=== PATIENT | male | born 1950 | race Caucasian/White ===

== ENCOUNTER 2016-10-23 09:02 | Outpatient (CLI) | payer OTHER | END 2016-10-23 09:03 | disposition home or self-care (01) | DX: N39.0 Urinary tract infection, site not specified (principal); R73.09 Other abnormal glucose ==

== ENCOUNTER 2019-03-20 21:10 | Outpatient (CLI) | payer BC | END 2019-03-20 21:11 | disposition critical access hospital (66) | LOC: EMS 21:10 | PROVIDERS: ATTEND Surgery | DX: R04.0 Epistaxis (principal); R42 Dizziness and giddiness | CPT/HCPCS: A0425; A0429 ==

== ENCOUNTER 2019-03-20 21:27 | Emergency (ER) | payer BC, OTHER ==
--- NOTE | 2019-03-20 21:36 | ED Physician Documentation ---
PD HPI HEENT - Stated complaint Stated Complaint: NOSE BLEED - History obtained from History obtained from: Patient - History of Present Illness Timing - onset: Enter time (20:00), Today Timing - details: Abrupt onset Pain level now: 0 Improves: Nothing Similar symptoms before: Has not had sx before Recently seen: Not recently seen - Additional information Additional information: sudden onset left nare epistaxis while at rest at home 8 PM tonight. Review of Systems Nose: reports: Epistaxis. denies: Congestion, Sinus pressure / pain PD PAST MEDICAL HISTORY - Past Medical History Cardiovascular: Hypertension, Angina Respiratory: Sleep apnea, CPAP use Endocrine/Autoimmune: Type 2 diabetes GI: Colon polyps Psych: Depression - Past Surgical History General: Colonoscopy Cardiovascular: Coronary stent - Present Medications Home Medications: Ambulatory Orders Medication Instructions Recorded Confirmed Hydrochlorothiazide [Microzide] 12.5 mg PO 01/17/13 01/17/13 Lisinopril [Zestril] 5 mg PO DAILY 01/17/13 01/17/13 Metformin HCl [Fortamet] 500 mg PO 01/17/13 01/17/13 Nitroglycerin [Nitrostat] 0.4 mg SL 01/17/13 01/17/13 Simvastatin [Zocor] 10 mg PO QPM 01/17/13 01/17/13 Aspirin 81 mg PO 01/18/13 01/18/13 [place]-3 Fatty Acids [Fish Oil] 500 mg PO 01/18/13 01/18/13 - Allergies Allergies/Adverse Reactions: Allergies Allergy/AdvReac Type Severity Reaction Status Date / Time No Known Drug Allergies Allergy Verified 01/17/13 14:45 PD ED PE NORMAL - Vitals Vital signs reviewed: Yes - General General: Alert and oriented X 3, No acute distress, Well developed/nourished - HEENT HEENT: Moist mucous membranes, Other (active epistaxis bilateral nares, L>R) Results - Vitals Vitals: Vital Signs - 24 hr 03/20/19 03/20/19 03/20/19 21:28 22:01 22:11 Temperature 37.0 C Heart Rate 113 H 117 H 108 H Respiratory 18 20 13 Rate Blood Pressure 176/105 H 174/115 H 178/104 H O2 Saturation 98 98 99 03/20/19 03/20/19 03/20/19 22:21 22:28 22:59 Temperature Heart Rate 105 H 107 H 106 H Respiratory 29 H 15 14 Rate Blood Pressure 173/111 H 173/111 H 164/99 H O2 Saturation 100 97 96 03/20/19 03/20/19 03/21/19 23:07 23:35 00:07 Temperature 36.5 C Heart Rate 110 H 107 H 104 H Respiratory 13 16 18 Rate Blood Pressure 168/98 H 145/88 H 155/110 H O2 Saturation 99 97 97 Oxygen O2 Source Room air - Labs Labs: Laboratory Tests 03/20/19 03/20/19 03/20/19 22:05 22:05 22:05 WBC 8.4 RBC 4.56 L Hgb 14.6 Hct 43.0 MCV 94.3 H MCH 32.0 H MCHC 34.0 RDW 13.5 Plt Count 191 MPV 11.3 Neut # (Auto) 4.3 Lymph # (Auto) 3.1 [place] # (Auto) 0.8 Eos # (Auto) 0.2 Baso # (Auto) 0.0 Absolute Nucleated RBC 0.00 Nucleated RBC % 0.0 PT 12.2 INR 1.1 APTT 29.8 Sodium 140 Potassium 3.7 Chloride 104 Carbon Dioxide 23 Anion Gap 13.0 BUN 24 H Creatinine 0.8 Estimated GFR (MDRD) 96 Glucose 142 H Calcium 9.3 Total Bilirubin 0.4 AST 23 ALT 22 Alkaline Phosphatase 64 Total Protein 7.0 Albumin 4.1 Globulin 2.9 Albumin/Globulin Ratio 1.4 Lipase 26 Procedures - Epistaxis Site: Left, Cannot determine Preparation: Cocaine, Clamp / pressure applied, Other (tranexemic acid. afrin was not available (not in stock)) Treatment: Anterior rhinorocket Other: Observed - no bleeding, Pt tolerated well PD MEDICAL DECISION MAKING - ED course Complexity details: reviewed results, re-evaluated patient, considered differential, d/w patient, d/w family ED course: hemostasis achieved with placement of 4.5 cm rhino stat. Departure - Departure Disposition: 01 Home, Self Care Clinical Impression: Epistaxis Condition: Good Instructions: ED Nosebleed, ED Nasal Packing Anterior Removable Follow-Up: Maria R Gann PA-C [Primary Care Provider] - Forms: Activity restrictions Discharge Date/Time: 03/21/19 00:25
[2019-03-20] MEDS ORDERED: LIDOCAINE VISCOUS 2% 15 ML UDC MM STA (21:37)
[2019-03-20] MEDS ORDERED: TRANEXAMIC ACID 1,000 MG/10 ML VIAL NAS STA (21:38)
[2019-03-20] MEDS ORDERED: COCAINE 4 ML BOTTLE TOP STA (21:40)
[2019-03-20 22:13] LABS: BASOPHILS % (AUTO) 0.5 %; EOSINOPHILS # (AUTO) 0.2 10^3/uL (0.0-0.7); HGB - HEMOGLOBIN 14.6 g/dL (14.0-18.0); LYMPHOCYTES # (AUTO) 3.1 10^3/uL (1.5-3.5); LYMPHOCYTES % (AUTO) 36.7 %; MEAN CORPUSCULAR VOLUME 94.3 fL (80.0-94.0); MEAN PLATELET VOLUME 11.3 fL (7.4-11.4); MONOCYTES # (AUTO) 0.8 10^3/uL (0.0-1.0); MONOCYTES % (AUTO) 9.6 %; NEUTROPHILS # (AUTO) 4.3 10^3/uL (1.5-6.6); PLT - PLATELET COUNT 191 10^3/uL (130-450); RED BLOOD COUNT 4.56 10^6/uL (4.70-6.10); RED CELL DISTRIBUTION WIDTH 13.5 % (12.0-15.0); WHITE BLOOD COUNT 8.4 x10^3/uL (4.8-10.8)
[2019-03-20 22:18] LABS: INR 1.1 (0.8-1.2); PT - PROTHROMBIN TIME 12.2 secs (9.9-12.6)
[2019-03-20 22:25] LABS: PARTIAL THROMBOPLASTIN TIME 29.8 secs (24.9-33.3)
[2019-03-20 22:28] LABS: ALBUMIN 4.1 g/dL (3.2-5.5); ALBUMIN/GLOBULIN RATIO 1.4 (1.0-2.2); BILIRUBIN,TOTAL 0.4 mg/dL (0.2-1.0); CALCIUM 9.3 mg/dL (8.5-10.3); CREATININE 0.8 mg/dL (0.6-1.2)
[2019-03-21 00:09] VITALS: BP 155/110
== END 2019-03-21 00:25 | disposition home or self-care (01) ==
LOC: EDUNIT# → ED 21:27
DX: R04.0 Epistaxis (principal); I10 Essential (primary) hypertension; E11.9 Type 2 diabetes mellitus without complications; Z79.84 Long term (current) use of oral hypoglycemic drugs; Z79.82 Long term (current) use of aspirin
CPT/HCPCS: 30901; 36415; 80053; 83690; 85025; 85610; 85730; 99283; 99284

== ENCOUNTER 2021-03-19 09:51 | Emergency (ER) | payer OTHER, BC ==
--- NOTE | 2021-03-19 10:19 | ED Physician Documentation ---
PD HPI UPPER EXT INJURY - Stated complaint Stated Complaint: FINGER LAC - Chief complaint Chief Complaint: Laceration - History obtained from History obtained from: Patient - History of Present Illness Location: Right, Finger (index fingertip) Type of injury: Other (He states he was reaching into a freezer to collect specimens for delivery and had a pinpoint puncture of the skin from a piece of sharp ice crystal in the freezer. There was no apparent body fluids or blood within the freezer. He was however told to come to the ER for evaluation.) Where injury occurred: Work Timing - onset: Today Timing - details: Abrupt onset, Now resolved (it does not hurt at all, per patient.) Associated symptoms: No: Weakness, Numbness Review of Systems Neurologic: denies: Focal weakness, Numbness PD PAST MEDICAL HISTORY - Past Medical History Past Medical History: Yes Cardiovascular: Hypertension, Angina Respiratory: Sleep apnea, CPAP use Neuro: None Endocrine/Autoimmune: Type 2 diabetes GI: Colon polyps : None HEENT: None Psych: Depression Musculoskeletal: None Derm: None - Past Surgical History Past Surgical History: Yes General: Colonoscopy Cardiovascular: Coronary stent - Present Medications Home Medications: Ambulatory Orders Medication Instructions Recorded Confirmed Metformin HCl [Fortamet] 500 mg PO 01/17/13 01/17/13 Nitroglycerin [Nitrostat] 0.4 mg SL 01/17/13 01/17/13 Simvastatin [Zocor] 10 mg PO QPM 01/17/13 01/17/13 hydroCHLOROthiazide [Microzide] 12.5 mg PO 01/17/13 01/17/13 lisinopriL [Zestril] 5 mg PO DAILY 01/17/13 01/17/13 Aspirin 81 mg PO 01/18/13 01/18/13 [place]-3 Fatty Acids [Fish Oil] 500 mg PO 01/18/13 01/18/13 - Allergies Allergies/Adverse Reactions: Allergies Allergy/AdvReac Type Severity Reaction Status Date / Time No Known Drug Allergies Allergy Verified 03/19/21 09:58 - Social History Does the pt smoke?: No Smoking Status: Never smoker Does the pt drink ETOH?: Yes Does the pt have substance abuse?: No - Immunizations Immunizations are current?: No - POLST Patient has POLST: No PD ED PE NORMAL - Vitals Vital signs reviewed: Yes - General General: Alert and oriented X 3, No acute distress, Well developed/nourished - Derm Derm: Normal color, Warm and dry - Extremities Extremities: Normal ROM s pain, Other (finger without apparent injury of the skin. ) - Neuro Neuro: No motor deficit, No sensory deficit Results - Vitals Vitals: Vital Signs - 24 hr 03/19/21 03/19/21 09:54 11:10 Temperature 36.6 C 36.8 C Heart Rate 92 76 Respiratory 15 16 Rate Blood Pressure 151/98 H 145/96 H O2 Saturation 100 99 Oxygen O2 Source Room air - Labs Labs: Laboratory Tests 03/19/21 03/19/21 11:12 11:12 WBC 5.6 RBC 4.72 Hgb 15.2 Hct 45.1 MCV 95.6 H MCH 32.2 H MCHC 33.7 RDW 13.0 Plt Count 181 MPV 10.9 Sodium 140 Potassium 4.1 Chloride 105 Carbon Dioxide 24 Anion Gap 11.0 BUN 18 Creatinine 0.8 Estimated GFR (MDRD) 96 Glucose 140 H Calcium 9.8 Total Bilirubin 1.1 H AST 27 ALT 30 Alkaline Phosphatase 58 Total Protein 7.2 Albumin 4.6 Globulin 2.6 Albumin/Globulin Ratio 1.8 PD MEDICAL DECISION MAKING - ED course Complexity details: considered differential (The patient describes being in poked with a piece of ice on the edging within the freezer. There were no body fluids. It was not a needlestick. He was referred to the ER for an exposure/needlestick injury but it really sounds like a nonexposure.), d/w patient Departure - Departure Disposition: 01 Home, Self Care Clinical Impression: Puncture wound of finger Qualifiers: Encounter type: initial encounter Qualified Code(s): S61.239A - Puncture wound without foreign body of unspecified finger without damage to nail, initial encounter Condition: Stable Record reviewed to determine appropriate education?: Yes Follow-Up: Maria R Gann PA-C [Primary Care Provider] - Comments: Presumably the infection control nurse from the hospital will contact you over the next few days for follow-up on this injury. Recheck if signs of infection develop. Discharge Date/Time: 03/19/21 11:13
[2021-03-19 11:10] VITALS: BP 145/96
[2021-03-19 11:24] LABS: HCT - HEMATOCRIT 45.1 % (42.0-52.0); HGB - HEMOGLOBIN 15.2 g/dL (14.0-18.0); MEAN CORPUSCULAR HEMOGLOBIN 32.2 pg (27.0-31.0); MEAN CORPUSCULAR HGB CONC 33.7 g/dL (32.0-36.0); MEAN CORPUSCULAR VOLUME 95.6 fL (80.0-94.0); MEAN PLATELET VOLUME 10.9 fL (7.4-11.4); RED BLOOD COUNT 4.72 10^6/uL (4.70-6.10); WHITE BLOOD COUNT 5.6 x10^3/uL (4.8-10.8)
[2021-03-19 11:36] LABS: ALBUMIN 4.6 g/dL (3.2-5.5); ALBUMIN/GLOBULIN RATIO 1.8 (1.0-2.2); BILIRUBIN,TOTAL 1.1 mg/dL (0.2-1.0); CALCIUM 9.8 mg/dL (8.5-10.3); CREATININE 0.8 mg/dL (0.6-1.2); POTASSIUM 4.1 mmol/L (3.5-5.0); TOTAL PROTEIN 7.2 g/dL (6.7-8.2)
[2021-03-20 11:16] LABS: HEPATITIS C ANTIBODY NON-REACTIVE (NON-REACTIVE)
[2021-03-20 15:01] LABS: HIV AG/AB 4TH GEN NON-REACTIVE (NON-REACTIVE)
== END 2021-03-19 11:13 | disposition home or self-care (01) ==
LOC: ED 09:51
DX: S61.230A Puncture wound without foreign body of right index finger without damage to nail, initial encounter (principal); W26.8XXA Contact with other sharp object(s), not elsewhere classified, initial encounter; Y93.89 Activity, other specified; Y99.0 Civilian activity done for income or pay; I10 Essential (primary) hypertension; E11.9 Type 2 diabetes mellitus without complications; Z79.84 Long term (current) use of oral hypoglycemic drugs; Z79.82 Long term (current) use of aspirin
CPT/HCPCS: 36415; 80053; 85027; 86317; 86803; 87389; 99281; 99283

== ENCOUNTER 2021-04-18 09:38 | Outpatient (CLI) | payer BC ==
[2021-04-18 10:42] VITALS: BP 146/89
--- NOTE | 2021-04-18 10:42 | SLEEP CARE CONSULTATION ---
Information from patient questionnaire entered by Nohemy Castillo. I have reviewed and concur with the information entered by Nohemy Castillo. This document represents the service I personally performed and the decisions made by , Yelena Ocampo ARNP. History of Present Illness Service Date and Time: 04/18/2021 0938 Reason for Visit: New patient, Previously diagnosed sleep apnea (moderate - AHI - 26.0), sleep apnea on CPAP therapy, Re-establish care (last seen 01/2012) Chief Complaint: reports: Other (recalled CPAP) Date of Onset: 15 years Usual bedtime: 10:30 pm Time it takes to fall asleep: varies Snores at night: Yes (prior to CPAP) Observed to quit breathing while asleep: Yes Sleeps alone due to snoring: No Number of times waking at night: 1-2 Reasons for waking at night: reports: Bathroom Toss, Turn, or Twitch while sleeping: No Recalls having dreams: No Usually gets out of bed at: 7 am Feels refreshed in the morning: Yes Morning headache: No Sleepy or fatigued during the day: No Ever fallen asleep while driving: No Takes day naps: No Dreams during day naps: No Prior sleep studies: Yes Year and Where: 2011 [facility] Type of Sleep Study: Polysomnography (split-night) Additional HPI information: ELI JAIMES was previously diagnosed to have moderate, AHI 26, obstructive sleep apnea-hypopnea syndrome and comes in today to re-establish care for CPAP therapy. - Parasomnia Symptoms Ever been unable to move upon waking from sleep: No Walks in sleep: No Talks in sleep: No Ever acted out dreams in sleep: No Ever felt weak in the knees when startled or emotional: No Bothered by creepy, crawly, restless sensations in legs: No Problems with memory or concentration: No CPAP Compliance Data - Data Reviewed with Patient Average duration of nightly device use: 5 hours 43 minutes Compliance rate %: 81.1 Current pressure setting (cmH2O): 8 Humidity setting: off Heated hose setting: off Average residual AHI: 2.8 Central apnea: 0.1 Obstructive apnea: 1.2 Hypopnea: 1.5 Average large leak: 37 mins 49 secs Compliance data discussion: He has been getting his supplies online after his insurance changed. He is using a nasal pillows mask. He does not have a back up mask. He last changed his mask cushion about 2 months ago. Subjective Patient concerns: reports: mask leak noise (occasional, just needs adjustment). denies: aerophagia, mask discomfort, air blowing in eyes, condensation in mask/hose, nasal congestion, dry mouth, nose, throat, epistaxis, other Observed to snore while using device: No Current pressure setting perceived as: comfortable On therapy, patient: reports: sleeping better, awakening more refreshed, being more awake and alert during the day, more rested overall. 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 Patient is and lives in [place]. Have you smoked in the past 12 months: No Alcohol use: Yes Alcohol amount and frequency: 3 beers 3 times a week Caffeine use: Yes Caffeine amount and frequency: 2 cups of coffee daily Family History Family history of sleep disordered breathing: No Allergies and Home Medications Drug allergies reviewed: Yes (NKDA) Home medication list reviewed: Yes Allergy and home medication list: Lisinopril 10 mg Rosuvastatin 20 mg Aspirin 81 mg x 2 Niacin 500 mg daily Review of Systems Cardiovascular: reports: high blood pressure Physical Exam Blood Pressure: 146/89 (pt states whitecoat syndrome) Cuff size: wrist Heart Rate: 72 O2 Saturation: 99 Height: 6 ft 2 in Weight: 233 lb Body Mass Index: 29.9 BMI Classification: Overweight Heart: regular rate and rhythm Lungs: clear bilaterally Impression and Plan 1. Obstructive Sleep Apnea-Hypopnea Syndrome, moderate, with good treatment compliance and good apnea control. On CPAP therapy, the patient has better sleep quality and is more rested overall. Patient comes in with concerns about his device that is on recall. He last update his device about 8 years ago. Patient has already registered their device for the recall. Patient denies any black particles seen in machine or hoses, any unusual odors coming from device. Patient has not experienced any physical symptoms such as upper airway irritation, headache, skin or eye irritation, asthma, nausea/vomiting, difficulty breathing or chest pain. Patient informed that they may use an inline CPAP filter that they can obtain online to reduce chance of any particles being inhaled or ingested. We discussed thoroughly the health risks of not using the CPAP versus continuing use with the filter in place. If patient is not able to sleep due to waking up choking, gasping for air or other respiratory distress that they may decide to continue using it until it is either replaced or repaired. Since the patients current machine is at least 5 years old the patient is opting to update their device with a device that is not on the recall. Patient has been purchasing his supplies online. I will transfer his DME for him to be able to get his new device and supplies. Patient voiced understanding and agreement with plan. Patient was encouraged to lose weight for their overall health and to reduce apneas. Patient's apnea severity and rationale for treatment to reduce apnea, improve sleep quality and reduce cardiovascular and cerebrovascular events was reviewed. I also reviewed the benefit of consistent device use of CPAP for hypertension, cardiac disease, and diabetes. * Continue auto CPAP pressure at 8 cmH2O * Transfer DME * Update device * Update supplies as needed * Notify me if snoring with mask or feeling that the pressure is too much or too little * Attempt to lose weight * Call this office if any problems using CPAP * Return for follow up one month after obtaining new device, or sooner if concerns arise Counseling Topics: Spare mask, Weight loss health impact Visit Type: In Office Time Spent with Patient (minutes): 38 Provider Statement: I spent 100% of the Face to Face Visit with the patient with greater than 50% spent counseling the patient and coordination of care.
== END 2021-04-18 09:39 | disposition home or self-care (01) ==
LOC: SC 09:38
PROVIDERS: ATTEND Nurse Practitioner Family
DX: G47.33 Obstructive sleep apnea (adult) (pediatric) (principal)
CPT/HCPCS: 99203; 99212

== ENCOUNTER 2021-05-24 11:01 | Outpatient (CLI) | payer BC ==
--- NOTE | 2021-05-24 12:11 | XRAY Report ---
PROCEDURE: Wrist 3 View RT INDICATIONS: RIGHT WRIST PAIN TECHNIQUE: 3 views of the wrist were acquired. COMPARISON: None. FINDINGS: BONES: No acute, displaced fracture or dislocation. 6.7 x 5.3 mm lucency in the first metacarpal base , which likely reflects fibrocystic change. Moderate osteophytosis and mild joint space loss about th e first and second carpometacarpal as well as the first interphalangeal articulations. Lucencies are seen in the scaphoid and navicular, which may reflect fibrocystic/degenerative change. The carpal bones are normally aligned. SOFT TISSUES: No focal abnormality. IMPRESSION: 1.No acute osseous abnormality. Reviewed by: Thomas Farah MD on 05/24/2021 12:09 PM PDT Approved by: Thomas Farah MD on 05/24/2021 12:09 PM PDT Station ID: [id number]
== END 2021-05-24 23:59 ==
LOC: DI.N 11:01
PROVIDERS: ATTEND Family Medicine
DX: M25.531 Pain in right wrist (principal)

== ENCOUNTER 2021-05-27 08:12 | Outpatient (CLI) | payer BC ==
--- NOTE | 2021-06-06 09:01 | XRAY Report ---
PROCEDURE: Wrist 3 View RT INDICATIONS: R WRIST PX TECHNIQUE: 3 views of the wrist were acquired. COMPARISON: Right wrist radiographs 05/24/2021. FINDINGS: Bones: No acute fractures or dislocations. No suspicious bony lesions. Severe degenerative changes are again seen at the first carpometacarpal joint with subchondral cystic changes and marginal osteo phyte formation. Degenerative changes also noted at the triscaphe joint and first metacarpophalangeal joint. Probable degenerative cystic changes are again seen within the scaphoid and lunate. Soft tissues: No suspicious soft tissue calcifications. IMPRESSION: 1.No acute osseous abnormality. If symptoms persist or there is continued clinical concern, further e valuation with MRI or CT may be helpful. 2.Degenerative changes at the triscaphe joint, first carpometacarpal joint, and first metacarpophalan geal joint. Reviewed by: Emiliano Mahoney MD on 06/06/2021 9:00 AM PDT Approved by: Emiliano Mahoney MD on 06/06/2021 9:00 AM PDT Station ID: [id number]
== END 2021-05-27 23:59 ==
LOC: DI.N 08:12
PROVIDERS: ATTEND Physician Assistant
DX: S52.124A Nondisplaced fracture of head of right radius, initial encounter for closed fracture (principal); M19.031 Primary osteoarthritis, right wrist

== ENCOUNTER 2021-08-09 08:08 | Outpatient (CLI) | payer BC ==
[2021-08-09 08:34] VITALS: BP 169/114
--- NOTE | 2021-08-09 08:34 | SLEEP CARE CONSULTATION ---
Information from patient questionnaire entered by Devante Mancilla MA. I have reviewed and concur with the information entered by Devante Mancilla MA. This document represents the service I personally performed and the decisions made by , Yelena Ocampo ARNP. History of Present Illness Service Date and Time: 08/09/2021 0808 Previous diagnosis: Moderate AHI: 26.0 Reason for follow up: first compliance (06/24 SET UP DATE), first compliance after device update Equipment type: CPAP Equipment obtained from: Other ([facility]; getting supplies) Mask style: Nasal pillows Backup mask available: Yes (old mask) Last cushion change: 1 month Prior sleep studies: Yes Year and Where: 2011 - [facility] Type of Sleep Study: Polysomnography (split-night) HPI additional information: ELI JAIMES was diagnosed to have moderate, AHI 26.0, obstructive sleep apnea-hypopnea syndrome and returned today for CPAP therapy first compliance after updating device follow-up. Sleep Study - Results Type of Sleep Study: Polysomnography (split-night) Prior sleep studies: Yes Year and Where: 2011 - [facility] CPAP Compliance Data - Data Reviewed with Patient Average duration of nightly device use: 6 hours 48 minutes Compliance rate %: 100 (45 days) Current pressure setting (cmH2O): 8 Average residual AHI: 1.7 Central apnea: 0.1 Obstructive apnea: 1.0 Average large leak: 38 MINUTES 56 SECONDS Subjective Patient concerns: denies: aerophagia, mask discomfort, air blowing in eyes, mask leak noise, nasal congestion, dry mouth, nose, throat, epistaxis, other Observed to snore while using device: No Current pressure setting perceived as: comfortable On therapy, patient: reports: sleeping better, awakening more refreshed, being more awake and alert during the day, more rested overall. denies: drowsiness while driving Initial [place] Sleepiness Scale score: 4 (in 2012) Current [place] Sleepiness Scale score: 3 Allergies and Home Medications Home medication list reviewed: Yes (no changes) Review of Systems Review of systems same as previous: Yes (no changes) Physical Exam Vital signs obtained and entered by: Benita Fernandez MA Blood Pressure: 169/114 (no meds this AM, had coffee; some whitecoat syndrome) Cuff size: wrist Heart Rate: 78 O2 Saturation: 99 Height: 6 ft 2 in Weight: 243 lb 12.8 oz Weight change since last visit: 10 lb gain Body Mass Index: 31.3 BMI Classification: Obese Impression and Plan 1. Obstructive Sleep Apnea-Hypopnea Syndrome, moderate, with excellent treatment compliance and good apnea control. On CPAP therapy, the patient has better sleep quality and is more rested overall. Patient is happy with new device, feels it is working better than his old device. He is using a nasal pillows mask and states the updated one fits better and has less leaks. He has no issues with using the face mask otherwise and has significant improvement of his sleep apnea. He gained some weight over the holidays because he has not been able to walk as much due to the inclement weather. Patient encouraged to try to increase activity and reduce processed and sugary foods. He voiced understanding and agreement. Patient's apnea severity and rationale for treatment to reduce apnea, improve sleep quality and reduce cardiovascular and cerebrovascular events was reviewed. I also reviewed the benefit of consistent device use of CPAP for hypertension, cardiac disease and diabetes. * Continue auto CPAP pressure at 8 cmH2O * Notify me if snoring with mask or feeling that the pressure is too much or too little * Attempt to lose weight * Call this office if any problems using CPAP * Return for follow up in 1 year, or sooner if concerns arise Counseling Topics: Spare mask, Weight loss health impact Visit Type: In Office Time Spent with Patient (minutes): 20 Provider Statement: I spent 100% of the Face to Face Visit with the patient with greater than 50% spent counseling the patient and coordination of care.
== END 2021-08-09 08:09 | disposition home or self-care (01) ==
LOC: SC 08:08
PROVIDERS: ATTEND Nurse Practitioner Family
DX: G47.33 Obstructive sleep apnea (adult) (pediatric) (principal); E66.9 Obesity, unspecified; Z68.31 Body mass index [BMI] 31.0-31.9, adult
CPT/HCPCS: 99212; 99213

== ENCOUNTER 2022-09-19 08:13 | Outpatient (CLI) | payer BC ==
[2022-09-19 08:54] VITALS: BP 128/82
--- NOTE | 2022-09-19 08:54 | SLEEP CARE CONSULTATION ---
Information from patient questionnaire entered by Misbah Rosario. I have reviewed and concur with the information entered by Misbah Rosario. This document represents the service I personally performed and the decisions made by me, Yelena Ocampo ARNP. History of Present Illness Service Date and Time: 09/19/2022 08 Previous diagnosis: Moderate, Obstructive Sleep Apnea-Hypopnea Syndrome AHI: 26.0 Reason for follow up: annual (LAST SEEN 08/2021) Equipment type: CPAP (ResMed Airsense 11 s/u108/2020) Equipment obtained from: Other ([facility]; getting supplies) Mask style: Nasal pillows Backup mask available: Yes (old mask) Last cushion change: 4-6 weeks ago [facility] Type [facility]: Polys[facility] (split-night) HPI additional information: ELI JAIMES was diagnosed to have moderate, AHI 26.0, obstructive sleep apnea-hypopnea syndrome and returned today for CPAP therapy annual follow-up. Sleep Study - Results Type of Sleep Study: Polysomnography (split-night) Prior sleep studies: Yes Year and Where: 2011 [facility] Data - Data Reviewed with Patient Average duration of nightly device use: 6 hours 43 minutes Compliance rate %: 98 (03/22/22-09/17/22; 180/180 days used) Current pressure setting (cmH2O): 8 Average residual AHI: 1.8 Central apnea: 0.3 Obstructive apnea: 1.0 Average large leak: 1.9 LPM Subjective Missed days of use due to: reports: illness (had RSV) Patient concerns: denies: aerophagia, mask discomfort, air blowing in eyes, mask leak noise, condensation in mask/hose, nasal congestion, dry mouth, nose, throat, epistaxis Observed to snore while using device: No Current pressure setting perceived as: comfortable On therapy, patient: reports: sleeping better, awakening more refreshed, being more awake and alert during the day, more rested overall. denies: drowsiness while driving Initial [place] Sleepiness Scale score: 4 (in 2011) Current [place] Sleepiness Scale score: 3 (09/19/22) Allergies and Home Medications Drug allergies reviewed: Yes (NKDA) Home medication list reviewed: Yes (no changes) Review of Systems Review of systems same as previous: No (had RSV) Physical Exam Vital signs obtained and entered by: MISBAH Jarrell MA Blood Pressure: 128/82 (LEFT ARM) Cuff size: regular Heart Rate: 76 O2 Saturation: 92 Height: 6 ft 2 in Weight: 230 lb Body Mass Index: 29.5 BMI Classification: Overweight Impression and Plan 1. Obstructive Sleep Apnea-Hypopnea Syndrome, moderate, with good treatment compliance and good apnea control. On CPAP therapy, the patient has better sleep quality and is more rested overall. Patient has significant improvement of their sleep apnea and is satisfied with current CPAP therapy. Patient denies problems with oral dryness, nasal congestion, epistaxis, skin irritation or aerophagia. Patient's apnea severity and rationale for treatment to reduce apnea, improve sleep quality and reduce cardiovascular and cerebrovascular events was reviewed. I also reviewed the benefit of consistent device use of CPAP for hypertension, cardiac disease and diabetes. 2. Overweight, unspecified. Currently patients BMI is 29.5. Obesity increases the risk of apnea, CPAP pressure requirements and overall health risks especially cardiovascular and diabetes. Thus patient is advised to lose weight. * Continue CPAP pressure at 8 cmH2O * Update supplies * Notify me if snoring with mask or feeling that the pressure is too much or too little * Attempt to lose weight * Call this office if any problems using CPAP * Return for follow up in 1 year, or sooner if concerns arise Counseling Topics: Spare mask, Weight loss health impact Visit Type: In Office Time Spent with Patient (minutes): 14 Provider Statement: I spent 100% of the Face to Face Visit with the patient with greater than 50% spent counseling the patient and coordination of care.
== END 2022-09-19 08:14 | disposition home or self-care (01) ==
LOC: SC 08:13
PROVIDERS: ATTEND Nurse Practitioner Family
DX: G47.33 Obstructive sleep apnea (adult) (pediatric) (principal); E66.3 Overweight; Z68.29 Body mass index [BMI] 29.0-29.9, adult
CPT/HCPCS: 99212

== ENCOUNTER 2023-05-29 06:28 | Day surgery (SDC) | payer BC ==
[2023-05-29] MEDS ORDERED: LACTATED RINGERS 1,000 ML IV ONE (06:33)
[2023-05-29] MEDS ORDERED: PROPOFOL 500 MG/50 ML 500 MG/50 ML VIAL ONE (06:52)
--- NOTE | 2023-05-29 07:08 | ANESTHESIA ---
Pre-Anesthesia VS, & Labs - Diagnosis screening - Procedure colonoscopy Vital Signs: Temp Pulse Resp BP Pulse Ox O2 Flow Rate 36.2 C L 92 14 149/94 H 99 05/29/23 06:33 05/29/23 06:33 05/29/23 06:33 05/29/23 06:33 05/29/23 06:33 Height: 6 ft 1 in Weight (kg): 101 kg Body Mass Index: 29.3 BMI Classification: Overweight - NPO >8 hours - Lab Results Current Lab Results: Laboratory Tests 05/29/23 06:51: POC Whole Bld Glucose 112 H Lab results reviewed: Yes Home Medications and Allergies Simvastatin [Zocor] 10 mg PO QPM 01/17/13 lisinopriL [Zestril] 5 mg PO DAILY 01/17/13 Aspirin 81 mg PO DAILY 01/18/13 [place]-3 Fatty Acids [Fish Oil] 500 mg PO DAILY 01/18/13 Allergies/Adverse Reactions: Allergies Allergy/AdvReac Type Severity Reaction Status Date / Time No Known Drug Allergies Allergy Verified 05/28/23 12:20 Anes History & Medical History - Anesthetic History Anesthesia Complications: reports: No previous complications Family history of Anesthesia Complications: Denies Family history of Malignant Hyperthermia: Denies - Medical History Cardiovascular: reports: Hypertension, Coronary artery disease, Angina (hx of stent 2010, no issues since), [place] Pulmonary: reports: Sleep apnea, CPAP use Gastrointestinal: reports: Colon polyps Urinary: reports: None Neuro: reports: None Musculoskeletal: reports: Osteoarthritis Endocrine/Autoimmune: reports: Type 2 diabetes Blood Disorders: reports: None Skin: reports: None Smoking Status: Never smoker - Surgical History General: reports: Colonoscopy Eyes Ears Nose Throat (EENT): reports: Tonsil/Adenoidectomy Cardiothoracic: reports: Coronary stent Exam General: Alert, Oriented x3, Cooperative Dental: WNL Mouth Openin Fingerbreadth Neck Mobility: Normal Mallampati classification: II Thyromental Distance: 4-6 cm Respiratory: Lungs clear Cardiovascular: Regular rate Plan Anesthesia Type: General, MAC Regional Block: Per Surgeon's request for Post Op pain control Consent for Procedure(s) Verified and Reviewed: Yes Code Status: Attempt Resuscitation ASA classification: 2-Mild systemic disease Is this case an emergency?: No
[2023-05-29] MEDS ORDERED: PROPOFOL 200 MG/20 ML VIAL IVP ONE (08:08)
[2023-05-29] MEDS ORDERED: LACTATED RINGERS 200 ML IV ONE (08:10)
[2023-05-29 09:42] VITALS: BP 122/80; O2SAT 98
--- NOTE | 2023-05-29 15:03 | ANESTHESIA POST OP EVALUATION ---
Anesthesia Post Eval - Post Anesthesia Eval Vitals: Last Vital Signs Temp 36.3 C L 05/29/23 09:19 Pulse 66 05/29/23 09:19 Resp 12 05/29/23 09:19 BP 122/80 05/29/23 09:19 Pulse Ox 98 05/29/23 09:19 O2 Flow Rate CV Function Including HR & BP: Stable Pain Control: Satisfactory Nausea & Vomiting: Negative Mental Status: Baseline Respiratory Status: Airway Patent Hydration Status: Satisfactory Anesthesia Complications: None
== END 2023-05-29 06:29 | disposition home or self-care (01) ==
LOC: SDS 06:28
PROVIDERS: ATTEND Surgery
DX: Z12.11 Encounter for screening for malignant neoplasm of colon (principal); K57.30 Diverticulosis of large intestine without perforation or abscess without bleeding; E11.9 Type 2 diabetes mellitus without complications; G47.30 Sleep apnea, unspecified; I25.10 Atherosclerotic heart disease of native coronary artery without angina pectoris; Z95.5 Presence of coronary angioplasty implant and graft; Z87.19 Personal history of other diseases of the digestive system
CPT/HCPCS: G0121; J7120

== ENCOUNTER 2023-09-25 08:18 | Outpatient (CLI) | payer BC ==
--- NOTE | 2023-09-25 08:48 | Sleep Patient Instructions ---
Sleep Center Visit Summary - Patient Visit Information Reason for Visit: Annual Follow up - Patient Instructions Additional Instructions: You will continue with CPAP therapy with pressure set at 8 cmH2O. A supply prescription will be updated with your DME. We encourage you to continue to try to lose weight. Please follow up with the sleep care office in 1 year. - Clinic Information Contact: [facility] [address] [place] [address] [email or web address] T: [phone]
--- NOTE | 2023-09-25 08:55 | SLEEP CARE CONSULTATION ---
Information from patient questionnaire entered by Misbah Rosario. I have reviewed and concur with the information entered by Misbah Rosario. This document represents the service I personally performed and the decisions made by , Yelena Ocampo ARNP. History of Present Illness Service Date and Time: 09/25/2023 0818 Previous diagnosis: Moderate, Obstructive Sleep Apnea-Hypopnea Syndrome AHI: 26.0 Reason for follow up: annual (LAST SEEN 09/2022) Equipment type: CPAP (ResMed Airsense 11 s/u 06/2021) Equipment obtained from: Other ([facility]; getting supplies) Mask style: Nasal pillows ([employer] FX) Backup mask available: Yes Last cushion change: couple months Prior sleep studies: Yes Year and Where: 2011 - [facility] Sleep Type of Sleep Study: Polysomnography (split-night) HPI additional information: ELI JAIMES was diagnosed to have moderate, AHI 26, obstructive sleep apnea-hypopnea syndrome and returned today for CPAP therapy annual follow-up. Sleep Study - Results Type of Sleep Study: Polysomnography (split-night) Prior sleep studies: Yes Year and Where: 2011 - [facility] Sleep CPAP Compliance Data - Data Reviewed with Patient Average duration of nightly device use: 7 HRS 14 MINS Compliance rate %: 100 (09/23/22-; 365/365 days used) Current pressure setting (cmH2O): 8 Average residual AHI: 2.1 Central apnea: 0.2 Obstructive apnea: 1.3 Hypopnea: 0.6 Average large leak: 0.8 L/min Subjective Patient concerns: denies: aerophagia, mask discomfort, air blowing in eyes, mask leak noise, condensation in mask/hose, nasal congestion, dry mouth, nose, throat, epistaxis Observed to snore while using device: No Current pressure setting perceived as: comfortable On therapy, patient: reports: sleeping better, awakening more refreshed, being more awake and alert during the day, more rested overall. denies: drowsiness while driving Initial [place] Sleepiness Scale score: 4 (in 2011) Current [place] Sleepiness Scale score: 2 (09/25/23) Allergies and Home Medications Known drug allergies: No Drug allergies reviewed: Yes Home medication list reviewed: Yes (Ezetimibe 10 mg) Allergy and home medication list: Allergies No Known Drug Allergies Allergy Review of Systems Review of systems same as previous: Yes (NO CHANGE) Physical Exam Vital signs obtained and entered by: MISBAH Jarrell MA Blood Pressure: 156/95 (LEFT ARM) Cuff size: regular Heart Rate: 88 O2 Saturation: 95 Height: 6 ft 1 in Weight: 229 lb 12.8 oz Weight change since last visit: 1 lb loss Body Mass Index: 30.3 BMI Classification: Obese Impression and Plan 1. Obstructive Sleep Apnea-Hypopnea Syndrome, moderate, with good treatment compliance and good apnea control. On CPAP therapy, the patient has better sleep quality and is more rested overall. He says he finally got a replacement from [facility] [employer] [facility] for his old DreamStation. It is a re-certified DreamStation but he says its does not seem to be working just right. My director medical made sure it was all set up properly so that he could use it as a backup if needed. Patient has significant improvement of their sleep apnea and is satisfied with current CPAP therapy. Patient denies problems with oral dryness, nasal congestion, epistaxis, skin irritation or aerophagia. Patient's apnea severity and rationale for treatment to reduce apnea, improve sleep quality and reduce cardiovascular and cerebrovascular events was reviewed. I also reviewed the benefit of consistent device use of CPAP for hypertension, cardiac disease, diabetes. 2. Obesity, unspecified. Currently patients BMI is 30.3. Obesity increases the risk of apnea, CPAP pressure requirements and overall health risks especially cardiovascular and diabetes. Thus patient is advised to lose weight. * Continue CPAP pressure at 8 cmH2O * Update supply prescription * Notify me if snoring with mask or feeling that the pressure is too much or too little * Attempt to lose weight * Call this office if any problems using CPAP * Return for follow up in 12 months, or sooner if concerns arise Counseling Topics: Spare mask, Weight loss health impact Prescriptions: Device supplies Follow up with Sleep Care in: 1 year Visit Type: In Office Time Spent with Patient (minutes): 22 Provider Statement: I spent 100% of the Face to Face Visit with the patient with greater than 50% spent counseling the patient and coordination of care.
[2023-09-25 09:10] VITALS: BP 156/95; O2SAT 95
== END 2023-09-25 08:19 | disposition home or self-care (01) ==
LOC: SC 08:18
PROVIDERS: ATTEND Nurse Practitioner Family
DX: G47.33 Obstructive sleep apnea (adult) (pediatric) (principal); E66.9 Obesity, unspecified; Z68.30 Body mass index [BMI] 30.0-30.9, adult
CPT/HCPCS: 99212; 99213

== ENCOUNTER 2024-03-13 13:39 | Emergency (ER) | payer BC ==
[2024-03-13] MEDS: lidocaine 1% 20 ML MDV SUBQ ONE (14:26)
--- NOTE | 2024-03-13 14:26 | ED Physician Documentation ---
History of Present Illness - Stated complaint Stated Complaint: LT THUMB LAC - Chief complaint Chief Complaint: Laceration - History obtained from History obtained from: Patient, Family () - Additonal information Additional information: Patient is a 73-year-old male presenting to the emergency department after preparing dinner at home he cut himself with a clean but sharp knife. Patient sustained laceration to left distal portion of thumb. No signs of injury to nail bed or foreign body in wound according to patient. He denies any numbness or tingling in his extremity. His last tetanus was about 4 years ago.Patient is on aspirin but no other blood thinners. PD PAST MEDICAL HISTORY - Past Medical History Past Medical History: Yes Cardiovascular: Hypertension, Coronary artery disease, Angina, [place] Respiratory: Sleep apnea, CPAP use Neuro: None Endocrine/Autoimmune: Type 2 diabetes GI: Colon polyps : None HEENT: Glaucoma Psych: Depression, Anxiety Musculoskeletal: Osteoarthritis Derm: None - Past Surgical History Past Surgical History: Yes General: Colonoscopy Cardiovascular: Coronary stent HEENT: Tonsil/Adenoidectomy - Present Medications Home Medications: Ambulatory Orders Medication Instructions Recorded Confirmed lisinopriL [Zestril] 5 mg PO DAILY 01/17/13 09/25/23 Aspirin 81 mg PO DAILY 01/18/13 09/25/23 [place]-3 Fatty Acids [Fish Oil] 500 mg PO DAILY 01/18/13 09/25/23 Ascorbic Acid [Vitamin C] 1 tab PO DAILY 05/29/23 09/25/23 Ezetimibe [Zetia] 1 tab PO DAILY 05/29/23 09/25/23 Magnesium 1 tab PO DAILY 05/29/23 09/25/23 Niacin [Niaspan] 1 tab PO DAILY 05/29/23 09/25/23 Rosuvastatin Calcium 1 tab PO DAILY 05/29/23 09/25/23 [place] 1 cap PO DAILY 05/29/23 09/25/23 Turmeric Root Extract [Turmeric] 500 mg PO DAILY 05/29/23 09/25/23 Ubidecarenone [Co Q-10] 1 cap PO DAILY 05/29/23 09/25/23 Zinc Citrate [Zinc] 1 tab PO DAILY 05/29/23 09/25/23 Ezetimibe [Zetia] See Rx Instructions .ROUTE .COMPLEX 09/25/23 09/25/23 - Allergies Allergies/Adverse Reactions: Allergies Allergy/AdvReac Type Severity Reaction Status Date / Time No Known Drug Allergies Allergy Verified 03/13/24 13:44 - Social History Does the pt smoke?: No Smoking Status: Never smoker Does the pt drink ETOH?: Yes Does the pt have substance abuse?: No - Immunizations Immunizations are current?: Yes - POLST Patient has POLST: No PD ED PE NORMAL - Vitals Vital signs reviewed: Yes - General General: Alert and oriented X 3 - HEENT HEENT: Atraumatic - Neck Neck: Supple, no meningeal sign - Cardiac Cardiac: RRR, No murmur, No gallop, No rub - Respiratory Respiratory: No respiratory distress, Clear bilaterally - Abdomen Abdomen: Normal bowel sounds, Non tender, Non distended - Derm Derm: Normal color, Other (Laceration noted to the distal portion of left thumb with laceration approximately 3 cm in size along thumb no invasion to nailbed or nail. Minimal bleeding on arrival. No signs of foreign body.) - Extremities Extremities: Other (Full range of motion at DIP and MCP joint of left thumb. Good capillary refill in place. Sensation intact to distal tip of left thumb. Full range of motion of digits 2 through 5 on left hand as well full sensation intact no other signs of injury trauma or deformity) Results - Vitals Vitals: Vital Signs - 24 hr 03/13/24 13:45 Temperature 36.5 C Heart Rate 90 Respiratory 16 Rate Blood Pressure 134/75 H O2 Saturation 98 Oxygen O2 Source Room air Procedures - Laceration (location) Finger left Length in cm: 3 Wound type: Linear Neurovascular status: Sensory intact, Motor intact, Vascular intact Tendon involvement: Tendon intact Anesthesia: Lidocaine 1% Wound preparation: Irrigated copiously NS Skin layer closure: Nylon, Sutures - enter # (4) Other: Patient tolerated well, No complications, Dressing applied, Tetanus UTD PD Medical Decision Making - ED course Complexity details: re-evaluated patient ED course: Patient is a 73-year-old male presenting to the emergency department after laceration to distal left thumb. Patient is right-handed injury occurred at home shortly prior to arrival. Patient's last tetanus was within the last 4 years. He denies any numbness or tingling or loss of sensation to his distal thumb. No signs of foreign body or injury to nailbed of thumb. Full range of motion at DIP and MCP joint of left thumb. Good capillary refill and good sensation intact to the left thumb. See procedure note above patient received 4 sutures to left thumb and tolerated the procedure well. Wound was wrapped here in emergency department and he will follow-up with his PCP in 14 days to have sutures removed. He is instructed to watch for any redness swelling warmth fevers or discharge from wound as these are signs of infection. Patient agreeable with this plan. Departure - Departure Disposition: 01 Home, Self Care Clinical Impression: Laceration, Laceration of left thumb Condition: Good Comments: Come back for any signs of infection which would include: Redness, swelling, drainage, increased pain, or fevers. You can wash it soap and water. Keep it covered and moist with bacitracin ointment which is available over the counter; avoid neosporin. Follow-up with your physician in [14] days for suture removal. Forms: PCP List
[2024-03-13 15:55] VITALS: BP 130/70; O2SAT 100
== END 2024-03-13 15:50 | disposition home or self-care (01) ==
LOC: ED 13:39
DX: S61.012A Laceration without foreign body of left thumb without damage to nail, initial encounter (principal); W26.0XXA Contact with knife, initial encounter; Y93.G1 Activity, food preparation and clean up
CPT/HCPCS: 12002; 99283